=== PATIENT | female | born 1975 | race Caucasian/White ===

== ENCOUNTER 2016-10-30 13:31 | Emergency (ER) | payer MEDICAID, OTHER ==
[~2016-10-30] VITALS: Ht 157.5 cm; Wt 135.0 kg
[~2016-10-30 13:31] MED LIST: FLON0.053; LISI-587 PO; SYNT88TA PO
[2016-10-30 13:39] VITALS: BP 103/59; PULSE 104; RESP 18; TEMP 98.6; O2SAT 97
[2016-10-30] MEDS ORDERED: SYNT88TA PO (13:46)
[2016-10-30] MEDS ORDERED: LISI20TA3 PO (13:46)
--- NOTE | 2016-10-30 14:10 | PD ---
HPI Chief Complaint: Pain: Acute or Chronic Time Seen by Provider: 14:10 Travel History International Travel<30 days: No Contact w/Intl Traveler<30days: No Traveled to known affect area: No History of Present Illness HPI 41-year-old female with history of arthritis presents to the ED for evaluation of "months long" history of bilateral knee and ankle pain. Onset gradual, worsened by weightbearing. She denies acute injury to the area. She denies crepitus or giving way, numbness, tingling, weakness, limitations to range of motion of the extremities. She states that she takes gabapentin for the pain. States that she is ambulatory with a cane, works at [employer], standing all day. States that she has been unable to follow up with an orthopedist due to insurance changes. PFSH Past Medical History Arthritis: Yes (RA) Asthma: No Autoimmune Disease: Yes Anxiety: Yes Cancer: Yes (OVARIAN) Cardiovascular Problems: Yes Chest Pain: Yes (2 TREADMILL-1 ADENOSINE STRESS TEST) COPD: No Diminished Hearing: No Endocrine: Yes Genitourinary: Yes (MULTIPLE KIDNEY INFECTIONS) Hypertension: Yes Implanted Vascular Access Dvce: No Musculoskeletal: Yes (RHEUMATOID ARTHRITIS) Psychiatric: Yes Reproductive: Yes Respiratory: No Immunizations Current: Yes Thyroid Disease: Yes Tetanus Vaccination: > 5 Years Influenza Vaccination: Yes ?: Not : 3 Para: 2 : 1 Ectopic : Yes Ovarian Cysts: Yes Dilation and Curettage (D&C): Yes Tubal Ligation: Yes Past Surgical History Abdominal Surgery: Yes (CHOLECYSTECTOMY) Section: Yes (x2) Cholecystectomy: Yes (04) Gynecologic Surgery: Yes (CSECTIONS, D&C WITH NOVOSURE, 2 OVARIAN CYSTS REMOVED ) Hysterectomy: Yes Pacemaker: No Other Surgery: Yes (C-SECTIONS, GALLBLADDER, TUBAL LIGATION, D&C WITH NOVASURE , 2 CYSTS FROM OV) Social History Alcohol Use: No Tobacco Use: Yes (1 PACK PER WEEK) Substance Use: No Allergies-Medications (Allergen,Severity, Reaction): Coded Allergies: Penicillin (Verified Allergy, Severe, swelling, 10/30/16) Sulfa (Verified Allergy, Severe, UNKNOWN, 10/30/16) Lortab (Verified Allergy, Intermediate, Itching, 10/30/16) Tranexamic Acid (Verified Allergy, Intermediate, Itching, 10/30/16) Reported Meds & Prescriptions Reported Meds & Active Scripts Active Ibuprofen 800 Mg Tab 800 Mg PO Q8H Reported Synthroid (Levothyroxine Sodium) 88 Mcg Tab 88 Mcg PO DAILY Lisinopril-Hctz 20-25 Mg Tab 1 Tab PO DAILY Review of Systems Except as stated in HPI: all other systems reviewed are Neg Physical Exam Narrative GENERAL: Well-nourished, well-developed obese white female in no acute distress. SKIN: Warm and dry. HEAD: Normocephalic. EYES: No scleral icterus. No injection or drainage. NECK: Supple, trachea midline. No JVD or lymphadenopathy. CARDIOVASCULAR: Regular rate and rhythm without murmurs, gallops, or rubs. RESPIRATORY: Breath sounds equal bilaterally. No accessory muscle use. GASTROINTESTINAL: Abdomen soft, non-tender, nondistended. MUSCULOSKELETAL: No cyanosis. Bilateral knee is tender to palpation of the joint lines. Limitations to flexion of bilateral knees secondary to body habitus. No popliteal tenderness to palpation. Patient is able to extend to 0 bilaterally. Mild edema and bimalleolar tenderness of bilateral ankles. Patient is able to flex and extend the ankles bilaterally. Strength 5/5 in bilateral lower extremities. 2+ DP pulses bilaterally. Sensation intact to light touch distally. Cap refill less than 2 seconds. BACK: No obvious deformity. No CVA tenderness. Mild midline lumbar tenderness, worsened on the right side and right buttocks. Data Data Last Documented VS Vital Signs Date Time Temp Pulse Resp B/P Pulse Ox O2 Delivery O2 Flow Rate FiO2 10/30/16 13:39 98.6 104 18 103/59 97 Orders Ketorolac Inj (Toradol Inj) (10/30/16 14:45) [facility] Medical Decision Making Medical Screen Exam Complete: Yes Emergency Medical Condition: Yes Differential Diagnosis Osteoarthritis versus rheumatoid arthritis versus drug seeking behavior versus other Narrative Course 41-year-old female with history of arthritis presents to the ED for evaluation of "months long" history of bilateral knee and ankle pain. Onset gradual, worsened by weightbearing. She denies acute injury to the area. She denies crepitus or giving way, numbness, tingling, weakness, limitations to range of motion of the extremities. She states that she takes gabapentin for the pain. States that she is ambulatory with a cane, works at [employer], standing all day. States that she has been unable to follow up with an orthopedist due to insurance changes. Vitals reviewed. Physical exam reveals a morbidly obese white female in no acute distress. She is observed to ambulate slowly but normally with a cane. Lower extremity exam reveals bilateral tender to palpation of the joint lines of the knees. Limitations to flexion of bilateral knees secondary to body habitus. No popliteal tenderness to palpation. Patient is able to extend to 0 bilaterally. Mild edema and bimalleolar tenderness of bilateral ankles. Patient is able to flex and extend the ankles bilaterally. Strength 5/5 in bilateral lower extremities. 2+ DP pulses bilaterally. Sensation intact to light touch distally. Cap refill less than 2 seconds. Mild tenderness to palpation of the midline in the lumbar area, worse at right-sided paraspinal musculature and buttocks. This is osteoarthritis flare. Patient was administered IM Toradol. She was prescribed a short course of 800 mg ibuprofen, instructed to follow-up with the orthopedist. She was provided a note to excuse for 2 days off work. She indicated understanding of the instructions. She is stable and discharged home. Diagnosis Primary Impression: Osteoarthrosis involving more than one site Qualified Code: M15.0 - Primary osteoarthritis involving multiple joints Referrals: Juan Pablo Shankar MD Patient Instructions: General Instructions, Osteoarthritis (ED) Departure Forms: Tests/Procedures, Work Release Enter return to work date: Nov 03, 2016 Additional Instructions: Rest, ice, elevate the extremity. Apply ice no longer than 10-15 minutes per hour a few times a day. 800 mg ibuprofen 3 times a day to reduce pain and inflammation. BEGIN TAKING TOMORROW MORNING. Continue gabapentin as prescribed. Return to normal, gentle activity as tolerated. No running, jumping activities for the next few weeks. Follow up with orthopedist or your primary care provider. Return to the ED for any urgent or emergent medical condition. Med/Other Pt SpecificInfo: Prescription(s) given Scripts Ibuprofen 800 Mg [id number] Mg PO Q8H #21 TAB Ref 0 Prov:Harley Alva MD 10/30/16 Disposition: 01 DISCHARGE HOME Condition: Stable Linda Olson Oct 30, 2016 14:10
[2016-10-30] MEDS ORDERED: IBUP800T23 PO (14:38)
[2016-10-30] MEDS ORDERED: KETOROLAC TROMETHAMINE 60 MG/2 ML (IM) VIAL IM ONE (14:45)
[2017-01-13] MEDS ORDERED: LEVO150T7 PO (11:04)
[2017-01-13] MEDS ORDERED: IBUP800T23 PO (11:04)
[2017-01-13] MEDS ORDERED: LISI20TA3 PO (11:04)
[2017-01-13] MEDS ORDERED: FURO1TAB62 PO (11:11)
[2017-01-21] MEDS ORDERED: LEVO175T2 PO (16:11)
[2017-01-22] MEDS ORDERED: LEVO200T4 PO (16:20)
== END 2016-10-30 15:01 | disposition home or self-care (01) ==
LOC: PHEFT 13:31
DX: M15.0 Primary generalized (osteo)arthritis (principal); M06.9 Rheumatoid arthritis, unspecified; F41.9 Anxiety disorder, unspecified; F17.210 Nicotine dependence, cigarettes, uncomplicated
CPT/HCPCS: 96372; 99283; J1885

== ENCOUNTER 2016-11-09 09:20 | Emergency (ER) | payer OTHER ==
[~2016-11-09] VITALS: Ht 157.5 cm; Wt 132.8 kg
[~2016-11-09 09:20] MED LIST changes: -FLON0.053; +IBUP800T23 PO; -LISI-587 PO; +LISI20TA3 PO
[2016-11-09 09:31] VITALS: BP 131/92; PULSE 86; RESP 17; TEMP 98.3; O2SAT 97
[2016-11-09 10:45] VITALS: BP 147/78; PULSE 82; RESP 18; O2SAT 98
[2016-11-09 11:14] VITALS: O2SAT 98
[2016-11-09] MEDS ORDERED: SODIUM CHLORIDE 0.9% FLUSH 5 ML FLUSH IVF PRN (11:15)
--- NOTE | 2016-11-09 11:27 | RADHPO ---
EXAM DATE/TIME: 11/09/2016 11:19 [facility] COMPARISON: CHEST SINGLE AP, May 08, 2013, 19:09. INDICATIONS : Sycope this am, cough, short of breath MEDICAL HISTORY : Hypertension. SURGICAL HISTORY : None. ENCOUNTER: Initial ACUITY: 1 day PAIN SCORE: 0/10 LOCATION: Bilateral chest FINDINGS: A single view of the chest demonstrates the lungs to be symmetrically aerated without evidence of mas s, infiltrate or effusion. The cardiomediastinal contours are unremarkable. Osseous structures are intact. CONCLUSION: No acute disease. Felipe Craig MD on November 09, 2016 at 11:23 Board Certified Radiologist. This report was verified electronically.
--- NOTE | 2016-11-09 11:52 | PD ---
HPI Chief Complaint: Syncope/Near-Syncope Time Seen by Provider: 11:01 Travel History International Travel<30 days: No Contact w/Intl Traveler<30days: No Traveled to known affect area: No History of Present Illness HPI 41-year-old female with history of chronic back pains, currently waiting to see pain management, presents to the ER today because she had a syncopal episode this morning while she was getting up. She states that she thinks she was dizzy but does not remember what happened, found herself on the floor. She states that she is now having a headache. She denies any chest pains, shortness of breath, vomiting, black stools, diarrhea, or any other symptoms. She states she does not eat yet this morning but didn't eat last night. She states that she is having 9 out of 10 lower back pain with radiation down the legs on both sides which is the same back pain she has been having for months that has been seeing her primary care physician for it. She denies any fevers, incontinence, abdominal pain, or any other symptoms. Modifying Factors: None Associated Signs & Symptoms: Lower back pain, headache, syncope Risk Factors: Chronic back pain PFSH Past Medical History Arthritis: Yes (RA) Asthma: No Autoimmune Disease: Yes Anxiety: Yes Cancer: Yes (OVARIAN) Cardiovascular Problems: Yes Chest Pain: Yes (2 TREADMILL-1 ADENOSINE STRESS TEST) COPD: No Diminished Hearing: No Endocrine: Yes Genitourinary: Yes (MULTIPLE KIDNEY INFECTIONS) Hypertension: Yes Implanted Vascular Access Dvce: No Musculoskeletal: Yes (RHEUMATOID ARTHRITIS) Psychiatric: Yes Reproductive: Yes Respiratory: No Immunizations Current: Yes Thyroid Disease: Yes Influenza Vaccination: Yes ?: Not LMP: HYSTO : 3 Para: 2 : 1 Ectopic : Yes Ovarian Cysts: Yes Dilation and Curettage (D&C): Yes Tubal Ligation: Yes Past Surgical History Abdominal Surgery: Yes (CHOLECYSTECTOMY) Section: Yes (x2) Cholecystectomy: Yes (04) Gynecologic Surgery: Yes (CSECTIONS, D&C WITH NOVOSURE, 2 OVARIAN CYSTS REMOVED ) Hysterectomy: Yes Pacemaker: No Other Surgery: Yes (C-SECTIONS, GALLBLADDER, TUBAL LIGATION, D&C WITH NOVASURE , 2 CYSTS FROM OV) Social History Alcohol Use: No Tobacco Use: Yes (1 PACK PER WEEK) Substance Use: No Allergies-Medications (Allergen,Severity, Reaction): Coded Allergies: Penicillin (Verified Allergy, Severe, swelling, 11/09/16) Sulfa (Verified Allergy, Severe, UNKNOWN, 11/09/16) Lortab (Verified Allergy, Intermediate, Itching, 11/09/16) Tranexamic Acid (Verified Allergy, Intermediate, Itching, 11/09/16) Reported Meds & Prescriptions Reported Meds & Active Scripts Active Ibuprofen 800 Mg Tab 800 Mg PO Q8H Reported Synthroid (Levothyroxine Sodium) 88 Mcg Tab 88 Mcg PO DAILY Lisinopril-Hctz 20-25 Mg Tab 1 Tab PO DAILY Review of Systems Except as stated in HPI: all other systems reviewed are Neg Physical Exam Narrative GENERAL: Well-developed middle age white female patient in mild distress secondary to back pain, awake, alert, oriented 3. SKIN: Warm and dry. HEAD: Atraumatic. Normocephalic. EYES: Pupils equal and round. No scleral icterus. No injection or drainage. ENT: No nasal bleeding or discharge. Mucous membranes pink and moist. NECK: Trachea midline. No JVD. CARDIOVASCULAR: Regular rate and rhythm. No murmur appreciated. RESPIRATORY: No accessory muscle use. Clear to auscultation. Breath sounds equal bilaterally. GASTROINTESTINAL: Abdomen soft, non-tender, nondistended. Hepatic and splenic margins not palpable. MUSCULOSKELETAL: No obvious deformities. No clubbing. No cyanosis. No edema. NEUROLOGICAL: Awake and alert. No obvious cranial nerve deficits. Motor grossly within normal limits. Normal speech. PSYCHIATRIC: Appropriate mood and affect; insight and judgment normal. BACK: No CVA tenderness. No rash. No point tenderness on palpation of the spine. There is mild tenderness on palpation of the lower lumbar spine area. No saddle anesthesia. Data Data Last Documented VS Vital Signs Date Time Temp Pulse Resp B/P Pulse Ox O2 Delivery O2 Flow Rate FiO2 11/09/16 13:20 71 18 148/74 99 11/09/16 11:14 Room Air 11/09/16 09:31 98.3 Orders Electrocardiogram (11/09/16 11:01) Ed Urine Pregnancytest Poc (11/09/16 11:01) Complete Blood Count With Diff (11/09/16 11:01) Comprehensive Metabolic Panel (11/09/16 11:01) Magnesium (Mg) (11/09/16 11:01) Act Partial Throm Time (Ptt) (11/09/16 11:01) Prothrombin Time / Inr (Pt) (11/09/16 11:01) Urinalysis - C+S If Indicated (11/09/16 11:01) Chest, Single Ap (11/09/16 11:01) Ct Brain W/O Iv Contrast(Rout) (11/09/16 11:01) Ecg Monitoring (11/09/16 11:01) Iv Access Insert/Monitor (11/09/16 11:01) Oximetry (11/09/16 11:01) Sodium Chloride 0.9% Flush (Ns Flush) (11/09/16 11:15) Cta Thor Abd Aorta W Iv C W3d (11/09/16 ) Morphine Inj (Morphine Inj) (11/09/16 12:30) Ondansetron Inj (Zofran Inj) (11/09/16 12:30) Urine Culture (11/09/16 13:15) Labs Laboratory Tests Test 11/09/16 11/09/16 11:44 13:15 White Blood Count 9.1 TH/MM3 Red Blood Count 4.42 MIL/MM3 Hemoglobin 12.7 GM/DL Hematocrit 38.0 % Mean Corpuscular Volume 86.0 FL Mean Corpuscular Hemoglobin 28.8 PG Mean Corpuscular Hemoglobin 33.5 % Concent Red Cell Distribution Width 15.3 % Platelet Count 269 TH/MM3 Mean Platelet Volume 8.6 FL Neutrophils (%) (Auto) 65.6 % Lymphocytes (%) (Auto) 24.8 % Monocytes (%) (Auto) 7.1 % Eosinophils (%) (Auto) 2.1 % Basophils (%) (Auto) 0.4 % Neutrophils # (Auto) 6.0 TH/MM3 Lymphocytes # (Auto) 2.3 TH/MM3 Monocytes # (Auto) 0.6 TH/MM3 Eosinophils # (Auto) 0.2 TH/MM3 Basophils # (Auto) 0.0 TH/MM3 CBC Comment DIFF FINAL Differential Comment Prothrombin Time 10.6 SEC Prothromb Time International 1.0 RATIO Ratio Activated Partial 29.1 SEC Thromboplast Time Sodium Level 140 MEQ/L Potassium Level 3.7 MEQ/L Chloride Level 104 MEQ/L Carbon Dioxide Level 30.5 MEQ/L Anion Gap 6 MEQ/L Blood Urea Nitrogen 16 MG/DL Creatinine 0.87 MG/DL Estimat Glomerular Filtration 71 ML/MIN Rate Random Glucose 91 MG/DL Calcium Level 8.7 MG/DL Magnesium Level 2.2 MG/DL Total Bilirubin 0.2 MG/DL Aspartate Amino Transf 20 U/L (AST/SGOT) Alanine Aminotransferase 34 U/L (ALT/SGPT) Alkaline Phosphatase 93 U/L Total Protein 7.7 GM/DL Albumin 3.3 GM/DL Urine Collection Type CLEAN CATCH Urine Color YELLOW Urine Turbidity CLEAR Urine pH 6.0 Urine Specific [place] 1.034 Urine Protein NEG mg/dL Urine Glucose (UA) NEG mg/dL Urine Ketones NEG mg/dL Urine Occult Blood NEG Urine Nitrite POS Urine Bilirubin NEG Urine Leukocyte Esterase NEG Urine WBC 0-2 /hpf Urine Squamous Epithelial 0-5 /hpf Cells Urine Bacteria MANY /hpf Microscopic Urinalysis Comment CULTURE INDICATED MDM Medical Decision Making Medical Screen Exam Complete: Yes Emergency Medical Condition: Yes Medical Record Reviewed: Yes Interpretation(s) EKG shows NSR, no ST elevation or depression, and no arrhythmias. No significant T-wave inversions. No prolongation of QTC or delta waves. Laboratory Tests Test 11/09/16 11/09/16 11:44 13:15 Estimat Glomerular Filtration 71 ML/MIN (>89) Rate Albumin 3.3 GM/DL (3.4-5.0) Urine Nitrite POS (NEG) Urine Bacteria MANY /hpf (NONE) Differential Diagnosis Back pain, headache, syncopevasovagal syncope versus orthostasis versus metabolic issues versus dehydration versus dysrhythmias versus acute intracranial processes versus dissection versus AAA Narrative Course Lab work did not reveal any signs of acute pulmonary processes. Chest x-ray is unremarkable for any signs of acute issues. CTA did not show any signs of acute pulmonary processes, aortic processes, or other acute issues. Lab work did not show significant metabolic issues or significant dehydration. Her EKG did not show dysrhythmias. Vital signs are stable in the ER. On reevaluation at 1:30 PM, patient states that she is feeling better after being given morphine and Zofran for pain. She ambulated to the bathroom with her cane without issues. At this point, patient also states me that she had some pain in the back of her right leg and she is worried about blood clots. At this point, I have told her that in order to rule out blood clots, we need to do a ultrasound of the right leg for further evaluation. However, the patient is declining at this time stating that she does not want to wait for an ultrasound. I have stated to her that with no ultrasound done, a blood clot in her right leg cannot be ruled out and if there is one, this could've been precipitated a pulmonary embolism which can be deadly. Patient states understanding and states that she would rather follow-up with her primary care physician on Thursday for further evaluation. The risks and possibility of undiagnosed DVT has been discussed with the patient. At this point, she should return for any worsening in pain, shortness of breath, further syncopal episodes or new issues as needed. Follow-up with primary care physician on Thursday. Patient states understanding. Diagnosis Primary Impression: Syncope Additional Impression: Chronic back pain greater than 3 months duration Disposition: 01 DISCHARGE HOME Condition: Stable Katt De La Paz MD Nov 09, 2016 11:52
[2016-11-09 11:53] LABS: BASOPHIL % 0.4 % (0.0-2.0); EOSINOPHIL # 0.2 TH/MM3 (0-0.4); EOSINOPHIL % 2.1 % (0.0-4.0); HEMO FLAGS DIFF FINAL; LYMPH % 24.8 % (9.0-44.0); LYMPHOCYTE # 2.3 TH/MM3 (1.0-4.8); MEAN CORPUSCULAR HEMOGLOBIN 28.8 PG (27.0-34.0); MEAN CORPUSCULAR HGB CONC 33.5 % (32.0-36.0); MONO % 7.1 % (0.0-8.0); NEUT % 65.6 % (16.0-70.0); PLATELET COUNT 269 TH/MM3 (150-450); RED BLOOD COUNT 4.42 MIL/MM3 (4.00-5.30); RED CELL DISTRIBUTION WIDTH 15.3 % (11.6-17.2); WHITE BLOOD COUNT 9.1 TH/MM3 (4.0-11.0)
[2016-11-09 12:00] LABS: CHLORIDE 104 MEQ/L (98-107); POTASSIUM 3.7 MEQ/L (3.5-5.1); SODIUM (NA) 140 MEQ/L (136-145)
[2016-11-09 12:03] LABS: ANION GAP 6 MEQ/L (5-15); BICARBONATE 30.5 MEQ/L (21.0-32.0); BLOOD UREA NITROGEN 16 MG/DL (7-18); MAGNESIUM 2.2 MG/DL (1.5-2.5)
[2016-11-09 12:04] LABS: APTT (PATIENT) 29.1 SEC (24.3-30.1); PROTHROMBIN TIME - PATIENT 10.6 SEC (9.8-11.6)
[2016-11-09 12:06] LABS: ALT (GPT) 34 U/L (10-53); AST (GOT) 20 U/L (15-37); GLOMERULAR FILTRATION RATE 71 ML/MIN (>89)
[2016-11-09 12:08] LABS: TOTAL BILIRUBIN ADULT 0.2 MG/DL (0.2-1.0)
[2016-11-09 12:09] LABS: ALKALINE PHOSPHATASE 93 U/L (45-117)
[2016-11-09] MEDS ORDERED: ONDANSETRON HCL 4 MG/2 ML VIAL IV PUSH ONE (12:30)
[2016-11-09] MEDS ORDERED: MORPHINE SULFATE 4 MG/ML INJ IV PUSH ONE (12:30)
--- NOTE | 2016-11-09 12:54 | RADHPO ---
EXAM DATE/TIME: 11/09/2016 12:23 [facility] COMPARISON: CT BRAIN W/O CONTRAST, April 09, 2013, 0:58. INDICATIONS : Cephalgia, syncope. RADIATION DOSE: 58.45 CTDIvol (mGy) MEDICAL HISTORY : Hypertension. SURGICAL HISTORY : Hysterectomy. Cholecystectomy. ENCOUNTER: Initial ACUITY: 1 day PAIN SCALE: 5/10 LOCATION: cranial TECHNIQUE: Multiple contiguous axial images were obtained of the head. Using automated exposure control and adj ustment of the mA and/or kV according to patient size, radiation dose was kept as low as reasonably a chievable to obtain optimal diagnostic quality images. FINDINGS: CEREBRUM: The ventricles are normal for age. No evidence of midline shift, mass lesion, hemorrhage or acute in farction. No extra-axial fluid collections are seen. POSTERIOR FOSSA: The cerebellum and brainstem are intact. The 4th ventricle is midline. The cerebellopontine angle i s unremarkable. EXTRACRANIAL: The visualized portion of the orbits is intact. SKULL: The calvaria is intact. No evidence of skull fracture. CONCLUSION: Normal examination. Felipe Craig MD on November 09, 2016 at 12:51 Board Certified Radiologist. This report was verified electronically.
--- NOTE | 2016-11-09 13:14 | RADHPO ---
EXAM DATE/TIME: 11/09/2016 12:27 [facility] COMPARISON: No previous studies available for comparison. INDICATIONS : Evaluate for aneursym IV CONTRAST: 99 cc Omnipaque 350 (iohexol) IV RADIATION DOSE: 22.94 CTDIvol (mGy) MEDICAL HISTORY : Hypertension. SURGICAL HISTORY : Cholecystectomy. Hysterectomy. ENCOUNTER: Initial ACUITY: 1 day PAIN SCALE: 2/10 LOCATION: chest TECHNIQUE: Volumetric scanning was performed using a multi-row detector CT scanner. The data was post processed with a variety of visualization algorithms including full volume maximum intensity projection, multi -planar sliding thin slab reformation, curved planar reformation, and surface rendering techniques. Using automated exposure control and adjustment of the mA and/or kV according to patient size, radiat ion dose was kept as low as reasonably achievable to obtain optimal diagnostic quality images. FINDINGS: Examination of the lung castaneda demonstrates no evidence of pulmonary nodule. No pleural fluid is iden tified. Examination of the mediastinum demonstrates no abnormally enlarged lymph nodes by CT criteri a. No axillary or hilar abnormalities are identified. Coronary artery calcifications are not present. There is decreased density of the liver with respect to the spleen compatible with fatty infiltration . The spleen is unremarkable. The gallbladder is absent. The pancreas demonstrates normal contour wit hout evidence of mass or ductal dilatation. The adrenal glands and kidneys appear normal bilaterally. No hydronephrosis or mass lesions are identified. Examination of the pelvis demonstrates no evidence of free fluid or pelvic mass. No abnormally enlarged inguinal or retroperitoneal lymph nodes are pre sent. The bladder is unremarkable. Examination of the aortic arch demonstrates no evidence of aneurysm or dissection. The descending th oracic aorta is unremarkable and the aortic root is normal in size. The aorta is normal in caliber. T here is no evidence of aneurysm or dissection. The renal artery origins are patent bilaterally. The c eliac axis and superior mesenteric artery origins are also patent. CONCLUSION: 1. No evidence of acute thoracic abnormality. No masses are identified. No evidence of aneurysm Jose Evans MD on November 09, 2016 at 13:08 Board Certified Radiologist. This report was verified electronically.
[2016-11-09 13:20] VITALS: BP 148/74; PULSE 71; RESP 18; O2SAT 99
[2016-11-09 13:20] LABS: BLOOD, URINE NEG (NEG); GLUCOSE,URINE NEG (NEG); KETONE, URINE NEG (NEG)
[2016-11-09 13:23] LABS: NITRITE,URINE POS (NEG)
[2016-11-09 13:24] LABS: METHOD OF COLLECTION CLEAN CATCH; URINE COLOR YELLOW (YELLW/STRAW)
[2016-11-09 13:25] LABS: BACTERIA, URINE MANY /hpf; COMMENT (UR) CULTURE INDICATED; CULTURE IF INDICATED CULTURE INDICATED; SQUAMOUS EPITHELIAL CELL URINE 0-5 /hpf (0-5); WBC, URINE 0-2 /hpf (0-5)
[2016-11-09] MEDS ORDERED: IOHEXOL 350 MG/ML 10 ML VIAL (for RAD DIAG) IV ONE (15:06)
--- NOTE | 2016-11-10 15:02 | EKG ---
Date Performed: 11/09/2016 Time Performed: 11:06:42 PTAGE: 41 years EKG: Sinus rhythm Normal ECG Compared to prior tracing no significant change PREVIOUS TRACING : 05/08/2013 18.39 DOCTOR: Nohelia Hoffman Interpretating Date/Time 11/10/2016 14:54:25
[2017-01-13] MEDS ORDERED: LISI20TA3 PO (11:04)
[2017-01-13] MEDS ORDERED: IBUP800T23 PO (11:04)
[2017-01-13] MEDS ORDERED: LEVO150T7 PO (11:04)
[2017-01-13] MEDS ORDERED: FURO1TAB62 PO (11:11)
[2017-01-21] MEDS ORDERED: LEVO175T2 PO (16:11)
[2017-01-22] MEDS ORDERED: LEVO200T4 PO (16:20)
== END 2016-11-09 13:55 | disposition home or self-care (01) ==
LOC: PHED 09:20
DX: R55 Syncope and collapse (principal); M54.9 Dorsalgia, unspecified; Z72.0 Tobacco use; M06.9 Rheumatoid arthritis, unspecified; F41.9 Anxiety disorder, unspecified
CPT/HCPCS: 70450; 71010; 71275; 74174; 80053; 81001; 83735; 85025; 85610; 85730; 87077; 87086; 87186; 93005; 96374; 96375; 99284; J2270; J2405; Q9967

== ENCOUNTER → 2017-01-21 | Outpatient (CLI) | payer OTHER ==
[~2017-01-21] MED LIST changes: +FURO1TAB62 PO; +FURO20TA PO; +LEVO150T7 PO; +LEVO175T2 PO; +LEVO200T4 PO; +PRED20 PO; -SYNT88TA PO
[2017-01-21 14:03] LABS: POTASSIUM 3.8 MEQ/L (3.5-5.1)
[2017-01-21 14:11] LABS: HDL CHOLESTEROL 38.6 MG/DL (40.0-60.0)
== END ==
LOC: CLAB 13:21
PROVIDERS: ATTEND Nurse Practitioner Family
DX: E66.9 Obesity, unspecified (principal); E03.9 Hypothyroidism, unspecified; M25.471 Effusion, right ankle
CPT/HCPCS: 36415; 80061; 84132; 84443

== ENCOUNTER 2017-01-25 13:48 | Emergency (ER) | payer OTHER ==
[~2017-01-25] VITALS: Ht 157.5 cm; Wt 133.0 kg
[~2017-01-25 13:48] MED LIST changes: -FURO20TA PO; -LEVO150T7 PO; -LEVO175T2 PO; -PRED20 PO
[2017-01-25 13:50] VITALS: BP 145/98; PULSE 99; RESP 16; TEMP 98.6; O2SAT 96
[2017-01-25] MEDS ORDERED: KETOROLAC TROMETHAMINE 60 MG/2 ML (IM) VIAL IM ONE (14:15)
--- NOTE | 2017-01-25 14:19 | PD ---
HPI Chief Complaint: Pain: Acute or Chronic Time Seen by Provider: 14:09 Travel History International Travel<30 days: No Contact w/Intl Traveler<30days: No Traveled to known affect area: No History of Present Illness HPI 41-year-old female presents to the emergency room for evaluation of bilateral knee pain for the past 2 days. Patient denies trauma or injury. States she woke up with pain. Patient states the pain is affecting her ability to walk. She cannot localize pain. Pain is equal and bilateral knees. She has history of rheumatoid arthritis in her ankles. Patient has been taking 800 mg ibuprofen without relief in symptoms. She denies paresthesias. Denies history of diabetes. PFSH Past Medical History Arthritis: Yes (RA) Asthma: No Autoimmune Disease: Yes Anxiety: Yes Cancer: Yes (OVARIAN) Cardiovascular Problems: Yes Chest Pain: Yes (2 TREADMILL-1 ADENOSINE STRESS TEST) COPD: No Diminished Hearing: No Endocrine: Yes Genitourinary: Yes (MULTIPLE KIDNEY INFECTIONS) Hypertension: Yes Implanted Vascular Access Dvce: No Musculoskeletal: Yes (RHEUMATOID ARTHRITIS) Psychiatric: Yes Reproductive: Yes Respiratory: No Immunizations Current: Yes Thyroid Disease: Yes : 3 Para: 2 : 1 Ectopic : Yes Ovarian Cysts: Yes Dilation and Curettage (D&C): Yes Tubal Ligation: Yes Past Surgical History Abdominal Surgery: Yes (CHOLECYSTECTOMY) Section: Yes (x2) Cholecystectomy: Yes (04) Gynecologic Surgery: Yes (CSECTIONS, D&C WITH NOVOSURE, 2 OVARIAN CYSTS REMOVED ) Hysterectomy: Yes Pacemaker: No Other Surgery: Yes (C-SECTIONS, GALLBLADDER, TUBAL LIGATION, D&C WITH NOVASURE , 2 CYSTS FROM OV) Social History Alcohol Use: No Tobacco Use: Yes (1 PACK PER WEEK) Substance Use: No Allergies-Medications (Allergen,Severity, Reaction): Coded Allergies: Penicillin (Verified Allergy, Severe, swelling, 01/25/17) Sulfa (Verified Allergy, Severe, UNKNOWN, 01/25/17) Lortab (Verified Allergy, Intermediate, Itching, 01/25/17) Tranexamic Acid (Verified Allergy, Intermediate, Itching, 01/25/17) Reported Meds & Prescriptions Reported Meds & Active Scripts Active Levothyroxine (Levothyroxine Sodium) 200 Mcg Tab 200 Mcg PO DAILY Lasix (Furosemide) 20 Mg Tab 20 Mg PO DAILY Ibuprofen 800 Mg Tab 800 Mg PO Q8H Lisinopril-Hctz 20-25 Mg Tab 1 Tab PO DAILY Review of Systems Except as stated in HPI: all other systems reviewed are Neg Physical Exam Narrative GENERAL: Well-nourished, morbidly obese female in no acute distress. Afebrile. Ambulatory. SKIN: Focused skin assessment warm/dry. No erythema or ecchymosis. HEAD: Normocephalic. EYES: No scleral icterus. No injection or drainage. NECK: Supple, trachea midline. No JVD or lymphadenopathy. CARDIOVASCULAR: Regular rate and rhythm without murmurs, gallops, or rubs. RESPIRATORY: Breath sounds equal bilaterally. No accessory muscle use. EXTREMITY: Mild tenderness to palpation of the proximal knees bilaterally. Full range of motion in all joints. No obvious edema or effusion. 2+ dorsalis pedis pulses are equal bilaterally. Data Data Last Documented VS Vital Signs Date Time Temp Pulse Resp B/P Pulse Ox O2 Delivery O2 Flow Rate FiO2 01/25/17 13:50 98.6 99 16 145/98 96 MDM Medical Decision Making Medical Screen Exam Complete: Yes Emergency Medical Condition: Yes Medical Record Reviewed: Yes Differential Diagnosis Osteoarthritis versus rheumatoid arthritis versus morbid obesity Narrative Course 41-year-old female with a history of rheumatoid arthritis presents to the emergency room for evaluation of bilateral knee pain for the past 2 days. Patient denies trauma or injury. Physical exam is unremarkable. Patient is ambulatory. Right lower extremities are neurovascularly intact with equal 2+ dorsalis pedis pulses. She has full range of motion bilaterally. No localized tenderness to palpation. No indication for imaging. Likely arthritis. Patient given Toradol the emergency room for her to be discharged with prescription for prednisone. It was recommended she lose weight to reduce pain. Told to follow up with primary care physician or return for worsening symptoms. Diagnosis Primary Impression: Osteoarthrosis involving more than one site Qualified Code: M15.0 - Primary osteoarthritis involving multiple joints Referrals: Primary Care Physician Patient Instructions: General Instructions, Osteoarthritis (ED) Additional Instructions: Rest and drink plenty of fluids. Take prednisone as directed, until gone. Take ibuprofen with food as directed, as needed for pain. Apply ice to the affected area for 20 minutes at a time, as needed for pain and swelling. Follow-up with a primary care physician. Return to the emergency room for worsening symptoms. Disposition: 01 DISCHARGE HOME Condition: Stable Era,Maia PA January 25, 2017 14:19
[2017-01-25] MEDS ORDERED: PRED20 PO (14:21)
[2017-01-25] MEDS ORDERED: FURO20TA PO (14:30)
== END 2017-01-25 14:41 | disposition home or self-care (01) ==
LOC: PHEFT 13:48
DX: M15.0 Primary generalized (osteo)arthritis (principal); M06.9 Rheumatoid arthritis, unspecified; F17.210 Nicotine dependence, cigarettes, uncomplicated
CPT/HCPCS: 96372; 99284; J1885

== ENCOUNTER 2017-03-12 12:15 | Emergency (ER) | payer OTHER ==
[~2017-03-12] VITALS: Ht 157.5 cm; Wt 139.0 kg
[~2017-03-12 12:15] MED LIST changes: -FURO1TAB62 PO; +FURO20TA PO
[2017-03-12 12:30] VITALS: BP 141/92; PULSE 93; RESP 14; TEMP 97.4; O2SAT 95
[2017-03-12 12:50] VITALS: BP 141/92; PULSE 93; RESP 16; TEMP 97.4; O2SAT 95
[2017-03-12] MEDS ORDERED: PRED20 PO (12:59)
[2017-03-12] MEDS ORDERED: TRAM50TA PO (12:59)
[2017-03-12] MEDS ORDERED: IBUP800T23 PO (12:59)
[2017-03-12] MEDS ORDERED: KETOROLAC TROMETHAMINE 60 MG/2 ML (IM) VIAL IM ONE (13:00)
[2017-03-12] MEDS ORDERED: METHOCARBAMOL 500 MG TAB PO ONE (13:00)
[2017-03-12] MEDS ORDERED: DEXAMETHASONE SOD PHOS 20 MG/5 ML VIAL IM ONE (13:00)
--- NOTE | 2017-03-12 13:05 | PD ---
HPI Chief Complaint: Musculoskeletal Complaint Time Seen by Provider: 12:59 Travel History International Travel<30 days: No Contact w/Intl Traveler<30days: No Traveled to known affect area: No History of Present Illness HPI 41-year-old female that presents to the ED for evaluation of pain to the knees and back for about 2 days. Patient has a chronic history of ulcers rhinitis and rheumatoid arthritis and she states that she usually has pain. Per patient she is concerned because she did fell 2 days ago and this is when the pain started to get more severe. Per patient she tripped and landed on both her knees. Per patient ever since she's also been developing lower back pain. Per patient she does have chronic pain but this feels a bit different and this is what concerned her. Per patient she only takes ibuprofen and gabapentin for the discomfort. She states that she doesn't have follow-up because of insurance issues and seems to follow with the patient assistance program. She states that she been taking ibuprofen with minimal relief and she came here today because the pain is not improving and she is having difficulty ambulating even with her cane. Per patient her pain is severe and 10 out of 10. Mainly in both knees as well as the lower back. No other pain or injury reported. No head injury. No blood thinner use. Denies . PFSH Past Medical History Arthritis: Yes (RA) Asthma: No Autoimmune Disease: Yes Anxiety: Yes Cancer: Yes (OVARIAN) Cardiovascular Problems: Yes Chest Pain: Yes (2 TREADMILL-1 ADENOSINE STRESS TEST) COPD: No Diminished Hearing: No Endocrine: Yes Genitourinary: Yes (MULTIPLE KIDNEY INFECTIONS) Hypertension: Yes Implanted Vascular Access Dvce: No Musculoskeletal: Yes (RHEUMATOID ARTHRITIS) Psychiatric: Yes Reproductive: Yes Respiratory: No Immunizations Current: Yes Thyroid Disease: Yes ?: Not : 3 Para: 2 : 1 Ectopic : Yes Ovarian Cysts: Yes Dilation and Curettage (D&C): Yes Tubal Ligation: Yes Past Surgical History Abdominal Surgery: Yes (CHOLECYSTECTOMY) Section: Yes (x2) Cholecystectomy: Yes (04) Gynecologic Surgery: Yes (CSECTIONS, D&C WITH NOVOSURE, 2 OVARIAN CYSTS REMOVED ) Hysterectomy: Yes Pacemaker: No Other Surgery: Yes (C-SECTIONS, GALLBLADDER, TUBAL LIGATION, D&C WITH NOVASURE , 2 CYSTS FROM OV) Social History Alcohol Use: No Tobacco Use: Yes (1 PACK PER WEEK) Substance Use: No Allergies-Medications (Allergen,Severity, Reaction): Coded Allergies: Penicillin (Verified Allergy, Severe, swelling, 03/12/17) Sulfa (Verified Allergy, Severe, UNKNOWN, 03/12/17) Lortab (Verified Allergy, Intermediate, Itching, 03/12/17) Tranexamic Acid (Verified Allergy, Intermediate, Itching, 03/12/17) Reported Meds & Prescriptions Reported Meds & Active Scripts Active Tramadol (Tramadol HCl) 50 Mg Tab 50 Mg PO Q6H PRN Prednisone 20 Mg Tab 20 Mg PO BID Ibuprofen 800 Mg Tab 800 Mg PO Q8H Levothyroxine (Levothyroxine Sodium) 200 Mcg Tab 200 Mcg PO DAILY Lisinopril-Hctz 20-25 Mg Tab 1 Tab PO DAILY Reported Furosemide 20 Mg Tab 20 Mg PO DAILY Review of Systems Except as stated in HPI: all other systems reviewed are Neg Physical Exam Narrative GENERAL: SKIN: Warm and dry. HEAD: Atraumatic. Normocephalic. EYES: Pupils equal and round. No scleral icterus. No injection or drainage. ENT: No nasal bleeding or discharge. Mucous membranes pink and moist. Tongue is midline. No uvula deviation. NECK: Trachea midline. No JVD. CARDIOVASCULAR: Regular rate and rhythm. No murmurs, S3, S4. RESPIRATORY: No accessory muscle use. Clear to auscultation. Breath sounds equal bilaterally. GASTROINTESTINAL: Abdomen soft, non-tender, nondistended. Hepatic and splenic margins not palpable. MUSCULOSKELETAL: Extremities without clubbing, cyanosis, or edema. No obvious deformities. Patient has reproducible pain with bending of the lower back. No obvious lumbar spine tenderness to palpation. Patient does appear to have some muscle tenderness on the lower back. Hard to assess knee secondary to body habitus but patient does not appear to have any severe discomfort with flexion or extension. Patient able to do it. Patient does have pain with weightbearing. No obvious swelling but again hard to assess because of patient' s body habitus. No erythema. No sign of infection. 2+ pulses in the lower extremities. Sensation intact bilaterally. Straight leg test negative bilaterally. NEUROLOGICAL: Awake and alert. No obvious cranial nerve deficits. Motor grossly within normal limits. Five out of 5 muscle strength in the arms and legs. Normal speech. PSYCHIATRIC: Appropriate mood and affect; insight and judgment normal. Data Data Last Documented VS Vital Signs Date Time Temp Pulse Resp B/P Pulse Ox O2 Delivery O2 Flow Rate FiO2 03/12/17 12:50 97.4 93 16 141/92 95 03/12/17 12:30 Room Air Orders Knee, Ltd (1 Or 2vws) (03/12/17 12:56) Spine, Lumbar - Ltd (Ap & Lat) (03/12/17 12:56) Knee, Ltd (1 Or 2vws) (03/12/17 ) Ketorolac Inj (Toradol Inj) (03/12/17 13:00) Dexamethasone Inj (Decadron Inj) (03/12/17 13:00) Methocarbamol (Robaxin) (03/12/17 13:00) MDM Medical Decision Making Medical Screen Exam Complete: Yes Emergency Medical Condition: Yes Medical Record Reviewed: Yes Interpretation(s) X-ray the right knee as well as the left knee show no sign of acute injury, biparte patella on the right knee, and possibly tiny joint effusions bilaterally. Lumbar spine xray show no sign of acute bony injury. Differential Diagnosis Acute on chronic pain versus fracture versus new pain versus posterior arthritis versus contusion Narrative Course 41-year-old female that presents to the ED for evaluation of bilateral knee pain and back pain. Patient was properly examined and was found to have signs and symptoms very consistent what appears to be muscle skeletal back pain and knee pain. Patient does already have a chronic history which is documented here in our ED as well as in the community clinic of knee pain and back pain which appears to be related to osteoarthritis as well as rheumatoid arthritis. She had a recent fall. She is muscle intact. No sign of acute bony injury we will do x-rays because of her body habitus and recent fall. X-rays were negative for acute disease. Patient was reassured. Patient was given a dose of Toradol, dexamethasone and Robaxin. Patient will be sent home with prescriptions for ibuprofen which she states that she is out of as well as tramadol and prednisone. To continue following with her primary care doctor for further evaluation and treatment of her rheumatoid arthritis and review pain. See ED worsening symptoms. Ice or warm compresses. Note for work given. Diagnosis Primary Impression: Low back strain Qualified Code: S39.012A - Low back strain, initial encounter Additional Impressions: Contusion of knee Qualified Code: S80.00XA - Contusion of knee, unspecified laterality, initial encounter Osteoarthrosis involving more than one site Qualified Code: M15.9 - Osteoarthritis of multiple joints, unspecified osteoarthritis type Patient Instructions: General Instructions Departure Forms: Tests/Procedures, Work Release Enter return to work date: Mar 16, 2017 Additional Instructions: Take medications as prescribed. Follow-up with PCP. See ED for any worsening symptoms. Do not drink or drive while taking pain medication. Apply ice or heat as needed for pain Med/Other Pt SpecificInfo: Prescription(s) given Scripts Tramadol 50 Mg Tab50 Mg PO Q6H PRN (PAIN) #12 TAB Ref 0 Prov:Ernesto Callahan MD 03/12/17 Prednisone 20 Mg Tab20 Mg PO BID #10 TAB Prov:Ernesto Callahan MD 03/12/17 Ibuprofen 800 Mg Pax320 Mg PO Q8H #30 TAB Ref 3 Prov:Ernesto Callahan MD 03/12/17 Disposition: 01 DISCHARGE HOME Condition: Stable Eric Rodrigues Mar 12, 2017 13:05
--- NOTE | 2017-03-12 13:59 | RADRPT ---
EXAM DATE/TIME: 03/12/2017 13:22 [facility] COMPARISON: No previous studies available for comparison. INDICATIONS : Fall, low back pain. MEDICAL HISTORY : Arthritis. SURGICAL HISTORY : None. ENCOUNTER: Initial ACUITY: 2 days PAIN SCORE: 10/10 LOCATION: low back FINDINGS: No appreciable compression deformities, spondylolisthesis, or spondylolysis is seen. Slight degenera tive changes are seen within the disc space and facets. Chronic atherosclerotic calcifications are se en without any definite aneurysmal dilatations for technique. CONCLUSION: Chronic changes. Funmilayo Funes MD on March 12, 2017 at 13:57 Board Certified Radiologist. This report was verified electronically.
--- NOTE | 2017-03-12 14:00 | RADRPT ---
EXAM DATE/TIME: 03/12/2017 13:24 [facility] COMPARISON: KNEE LEFT LTD (1 OR 2VWS), March 12, 2017, 13:24. INDICATIONS : Fall, right knee pain. MEDICAL HISTORY : Arthritis. SURGICAL HISTORY : None. ENCOUNTER: Initial ACUITY: 2 days PAIN SCORE: 10/10 LOCATION: Right knee FINDINGS: No definite fractures, or dislocations are identified. No definite lytic or sclerotic lesion is seen . The joint spaces are well maintained. 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 A tiny joint effusion may b e present. CONCLUSION: Bipartite patella and possible tiny effusion. Funmilayo Funes MD on March 12, 2017 at 13:58 Board Certified Radiologist. This report was verified electronically.
--- NOTE | 2017-03-12 14:01 | RADRPT ---
EXAM DATE/TIME: 03/12/2017 13:24 [facility] COMPARISON: No previous studies available for comparison. INDICATIONS : Fall, left knee pain. MEDICAL HISTORY : Arthritis. SURGICAL HISTORY : None. ENCOUNTER: Initial ACUITY: 2 days PAIN SCORE: 10/10 LOCATION: Left knee FINDINGS: No definite fractures, or dislocations are identified. No definite lytic or sclerotic lesion is seen . The joint spaces are well maintained. Tiny joint effusion is seen. CONCLUSION: Unremarkable study except for tiny joint effusion. Funmilayo Funes MD on March 12, 2017 at 13:59 Board Certified Radiologist. This report was verified electronically.
[2017-03-12 14:13] VITALS: BP 131/81
== END 2017-03-12 14:21 | disposition home or self-care (01) ==
LOC: PHED 12:15
DX: S39.012A Strain of muscle, fascia and tendon of lower back, initial encounter (principal); S80.01XA Contusion of right knee, initial encounter; S80.02XA Contusion of left knee, initial encounter; M15.9 Polyosteoarthritis, unspecified; M06.9 Rheumatoid arthritis, unspecified; W01.0XXA Fall on same level from slipping, tripping and stumbling without subsequent striking against object, initial encounter
CPT/HCPCS: 72100; 73560; 96372; 99284; J1100; J1885

== ENCOUNTER 2017-04-23 10:14 | Emergency (ER) | payer OTHER ==
[~2017-04-23] VITALS: Ht 157.5 cm; Wt 138.0 kg
[~2017-04-23 10:14] MED LIST changes: +PRED20 PO; +TRAM50TA PO
[2017-04-23 10:16] VITALS: BP 146/96; PULSE 108; RESP 16; TEMP 98.5; O2SAT 96
[2017-04-23] MEDS ORDERED: HYDR50TA94 PO (10:32)
[2017-04-23] MEDS ORDERED: GABA100C4 PO (10:35)
--- NOTE | 2017-04-23 10:36 | PD ---
HPI . Pruritic rash Chief Complaint: Skin Problem Time Seen by Provider: 10:26 Travel History International Travel<30 days: No Contact w/Intl Traveler<30days: No Traveled to known affect area: No History of Present Illness HPI Patient presents with the chief complaint of "cellulitis" her extremities. She states this been there for a month and a half. She states that it is very pruritic. It has been unrelieved by peroxide and Betadine. She has not seen her primary care provider for this. She reports no known modifying factors. She states that the itching is severe. She denies any fever. PFSH Past Medical History Arthritis: Yes (RA) Asthma: No Autoimmune Disease: Yes Anxiety: Yes Cancer: Yes (OVARIAN) Cardiovascular Problems: Yes (htn) Chest Pain: Yes (2 TREADMILL-1 ADENOSINE STRESS TEST) COPD: No Diminished Hearing: No Endocrine: Yes Genitourinary: Yes (MULTIPLE KIDNEY INFECTIONS) Hypertension: Yes Implanted Vascular Access Dvce: No Musculoskeletal: Yes (RHEUMATOID ARTHRITIS) Psychiatric: Yes Reproductive: Yes Respiratory: No Immunizations Current: Yes Thyroid Disease: Yes ?: Not : 3 Para: 2 : 1 Ectopic : Yes Ovarian Cysts: Yes Dilation and Curettage (D&C): Yes Tubal Ligation: Yes Past Surgical History Abdominal Surgery: Yes (CHOLECYSTECTOMY) Section: Yes (x2) Cholecystectomy: Yes (04) Gynecologic Surgery: Yes (CSECTIONS, D&C WITH NOVOSURE, 2 OVARIAN CYSTS REMOVED ) Hysterectomy: Yes Pacemaker: No Other Surgery: Yes (C-SECTIONS, GALLBLADDER, TUBAL LIGATION, D&C WITH NOVASURE , 2 CYSTS FROM OV) Social History Alcohol Use: No Tobacco Use: Yes (1 PACK PER WEEK) Substance Use: No Allergies-Medications (Allergen,Severity, Reaction): Coded Allergies: Sulfa (Sulfonamide Antibiotics) (Unverified Allergy, Severe, UNKNOWN, 04/14) penicillin G (Unverified Allergy, Severe, swelling, 04/14/17) acetaminophen (Unverified Allergy, Intermediate, Itching, 04/14/17) hydrocodone (Unverified Allergy, Intermediate, Itching, 04/14/17) tranexamic acid (Unverified Allergy, Intermediate, Itching, 04/14/17) Reported Meds & Prescriptions Reported Meds & Active Scripts Active Tramadol (Tramadol HCl) 50 Mg Tab 50 Mg PO Q6H PRN Prednisone 20 Mg Tab 20 Mg PO BID Ibuprofen 800 Mg Tab 800 Mg PO Q8H Levothyroxine (Levothyroxine Sodium) 200 Mcg Tab 200 Mcg PO DAILY Lisinopril-Hctz 20-25 Mg Tab 1 Tab PO DAILY Reported Furosemide 20 Mg Tab 20 Mg PO DAILY Review of Systems Except as stated in HPI: all other systems reviewed are Neg General / Constitutional: No: Fever, Chills Skin: Positive Rash, Positive Itching Physical Exam Narrative GENERAL: Awake and alert and in no acute distress. SKIN: Warm and dry. Scattered punctate macular lesions on her lower extremities. The skin is not red or hot. HEAD: Atraumatic. Normocephalic. EYES: Pupils equal and round. NECK: Trachea midline. CARDIOVASCULAR: Regular rate and rhythm. RESPIRATORY: No accessory muscle use. MUSCULOSKELETAL: No obvious deformities. No edema. NEUROLOGICAL: Awake and alert. No obvious cranial nerve deficits. Motor grossly within normal limits. Normal speech. PSYCHIATRIC: Appropriate mood and affect; insight and judgment normal. Data Data Last Documented VS Vital Signs Date Time Temp Pulse Resp B/P (MAP) Pulse Ox O2 Delivery O2 Flow Rate FiO2 04/23/17 10:16 98.5 108 16 146/96 (113) 96 MDM Medical Decision Making Medical Screen Exam Complete: Yes Emergency Medical Condition: Yes Differential Diagnosis The differential diagnosis of the skin rash includes but is not limited to allergic urticaria, scabies, insect bites, contact dermatitis Narrative Course This patient presents with a pruritic rash. She is concerned that his cellulitis. It does not have the typical appearance of cellulitis. She will be discharged home with a prescription for Vistaril to take for the itching. Diagnosis Primary Impression: Rash Patient Instructions: General Instructions, Acute Rash (ED) Departure Forms: Tests/Procedures Scripts Hydroxyzine HCl (Hydroxyzine HCl) 50 Mg Tab 50 MG PO QID Y for ITCHING, #30 TAB 0 Refills Prov: Nayeli Victoria MD 04/23/17 Disposition: 01 DISCHARGE HOME Condition: Stable Nayeli Victoria MD Apr 23, 2017 10:36
[2017-04-30] MEDS ORDERED: LEVO-171 PO (08:41)
[2017-04-30] MEDS ORDERED: GABA300C5 PO (08:47)
== END 2017-04-23 10:46 | disposition home or self-care (01) ==
LOC: PHED 10:14
DX: R21 Rash and other nonspecific skin eruption (principal); F17.210 Nicotine dependence, cigarettes, uncomplicated; I10 Essential (primary) hypertension; M06.9 Rheumatoid arthritis, unspecified; Z88.0 Allergy status to penicillin
CPT/HCPCS: 99283

== ENCOUNTER → 2017-04-29 | Outpatient (CLI) | payer OTHER ==
[~2017-04-29] MED LIST changes: +GABA100C4 PO; +GABA300C5 PO; +HYDR50TA94 PO; -IBUP800T23 PO; +LEVO-171 PO; -PRED20 PO; -TRAM50TA PO
== END ==
LOC: CLAB 08:57
PROVIDERS: ATTEND Nurse Practitioner Family
DX: E03.9 Hypothyroidism, unspecified (principal)
CPT/HCPCS: 36415; 84443

== ENCOUNTER 2017-05-19 10:28 | Emergency (ER) | payer OTHER ==
[~2017-05-19] VITALS: Ht 157.5 cm; Wt 141.5 kg
[~2017-05-19 10:28] MED LIST changes: -FURO20TA PO; -GABA100C4 PO; -LEVO200T4 PO
[2017-05-19 11:00] VITALS: BP 156/87; PULSE 86; RESP 18; TEMP 98.4; O2SAT 95
[2017-05-19] MEDS ORDERED: FURO20TA PO (11:10)
--- NOTE | 2017-05-19 11:50 | PD ---
HPI . Bilateral lower extremity discomfort Chief Complaint: Pain: Acute or Chronic Time Seen by Provider: 11:32 Travel History International Travel<30 days: No Contact w/Intl Traveler<30days: No Traveled to known affect area: No History of Present Illness HPI This patient presents with the chief complaint of at least a 2-1/2 month history of a pruritic, painful rash involving her lower extremities. It has now spread to the abdomen. She was seen here for it on 04/23 and was given a prescription for Atarax and told to follow with her primary care provider. She states that she has not seen her primary care provider because she "can't get there" and "does not have $75 to pay her." She subsequently presents back to us today for treatment. She states that she has used various different over-the -counter topical preparations on the rash without relief. She states that the previously prescribed Atarax did not help her itching. She reports no modifying factors. Specifically, she states that he does not exacerbate the rash. History Past Medical Histgory Hx Cancer: Yes (OVARIAN) Social History Alcohol Use: No Tobacco Use: Yes (1 PPD) Allergies-Medications (Allergen,Severity, Reaction): Coded Allergies: Sulfa (Sulfonamide Antibiotics) (Unverified Allergy, Severe, UNKNOWN, 05/19) penicillin G (Unverified Allergy, Severe, swelling, 05/19/17) acetaminophen (Unverified Allergy, Intermediate, Itching, 05/19/17) hydrocodone (Unverified Allergy, Intermediate, Itching, 05/19/17) tranexamic acid (Unverified Allergy, Intermediate, Itching, 05/19/17) Reported Meds & Prescriptions Reported Meds & Active Scripts Active Gabapentin 300 Mg Cap 300 Mg PO TID Levothyroxine (Levothyroxine Sodium) 300 Mcg Tab 300 Mcg PO DAILY Lisinopril-Hctz 20-25 Mg Tab 1 Tab PO DAILY Reported Furosemide 20 Mg Tab 20 Mg PO DAILY Review of Systems Except as stated in HPI: all other systems reviewed are Neg Skin: Positive Rash, Positive Itching Physical Exam Narrative GENERAL: This patient is awake and alert and in no acute distress. SKIN: Rash on the abdominal wall and bilateral lower extremities. It is worse around the ankles. There is excoriation. It does not like cellulitis. There is no purulent drainage from the excoriated lesions. HEAD: Normocephalic/atraumatic. EYES: Pupils are equal. Extraocular movements are intact. NECK: Full range of motion with no apparent pain. CARDIOVASCULAR: Regular rate. RESPIRATORY: Nonlabored respirations. MUSCULOSKELETAL: Atraumatic. NEUROLOGICAL: Nonfocal. PSYCHIATRIC: Appropriate mood and affect. Data Data Last Documented VS Vital Signs Date Time Temp Pulse Resp B/P (MAP) Pulse Ox O2 Delivery O2 Flow Rate FiO2 05/19/17 11:00 98.4 86 18 156/87 (110) 95 MDM Medical Screen Exam Complete: Yes Emergency Medical Condition: No Narrative Course A medical screening exam was performed: At the time of evaluation the presenting medical condition was determined not to be of an emergent nature. The patient was given the option of receiving additional care, but declined. Patient was given options for additional community resources from which to obtain care. The Patient Has Been advised to seek medical attention for their presenting complaint. The patient has been advised to return to the ER at any time if an emergent condition develops. Primary Impression: Encounter for medical screening examination Condition: Stable Nayeli Victoria MD May 19, 2017 11:50
== END 2017-05-19 11:55 | disposition left against medical advice (07) ==
LOC: PHED 10:28
DX: R21 Rash and other nonspecific skin eruption (principal)
CPT/HCPCS: 99281

== ENCOUNTER 2017-05-28 14:42 | Emergency (ER) | payer OTHER ==
[~2017-05-28] VITALS: Ht 157.5 cm; Wt 115.0 kg
[~2017-05-28 14:42] MED LIST changes: +FURO20TA PO; -HYDR50TA94 PO
[2017-05-28 14:43] VITALS: BP 168/99; PULSE 88; RESP 18; TEMP 99.3; O2SAT 97
[2017-05-28 16:29] LABS: BASOPHIL # 0.1 TH/MM3 (0-0.2); BASOPHIL % 0.6 % (0.0-2.0); EOSINOPHIL # 0.7 TH/MM3 (0-0.4); EOSINOPHIL % 6.4 % (0.0-4.0); HEMATOCRIT 38.7 % (35.0-46.0); HEMO FLAGS DIFF FINAL; LYMPH % 18.1 % (9.0-44.0); LYMPHOCYTE # 1.9 TH/MM3 (1.0-4.8); MEAN CELL VOLUME 87.8 FL (80.0-100.0); MEAN CORPUSCULAR HEMOGLOBIN 28.6 PG (27.0-34.0); MEAN CORPUSCULAR HGB CONC 32.5 % (32.0-36.0); MONO % 8.1 % (0.0-8.0); NEUT % 66.8 % (16.0-70.0); PLATELET COUNT 258 TH/MM3 (150-450); RED BLOOD COUNT 4.41 MIL/MM3 (4.00-5.30); WHITE BLOOD COUNT 10.5 TH/MM3 (4.0-11.0)
[2017-05-28 16:49] LABS: ALT (GPT) 58 U/L (10-53); ANION GAP 7 MEQ/L (5-15); AST (GOT) 33 U/L (15-37); BICARBONATE 28.7 MEQ/L (21.0-32.0); BLOOD UREA NITROGEN 11 MG/DL (7-18); CHLORIDE 100 MEQ/L (98-107); GLOMERULAR FILTRATION RATE 82 ML/MIN (>89); POTASSIUM 3.6 MEQ/L (3.5-5.1); SODIUM (NA) 136 MEQ/L (136-145)
[2017-05-28 16:51] LABS: ALKALINE PHOSPHATASE 113 U/L (45-117); TOTAL BILIRUBIN ADULT 0.2 MG/DL (0.2-1.0)
--- NOTE | 2017-05-29 10:20 | EKG ---
Date Performed: 05/28/2017 Time Performed: 14:52:24 PTAGE: 41 years EKG: Sinus rhythm MINIMAL VOLTAGE CRITERIA FOR LVH, CONSIDER NORMAL VARIANT SEPTAL MYOCARDIAL INFARCTION ABNORMAL ECG PREVIOUS TRACING : 11/09/2016 11.06 Compared to prior tracing no significant change DOCTOR: Jose Matamoros Interpretating Date/Time 05/29/2017 10:13:44
== END 2017-05-28 18:24 | disposition left against medical advice (07) ==
LOC: NED 14:42
DX: R42 Dizziness and giddiness (principal); R60.0 Localized edema; R94.31 Abnormal electrocardiogram [ECG] [EKG]; Z53.21 Procedure and treatment not carried out due to patient leaving prior to being seen by health care provider
CPT/HCPCS: 80053; 85025; 93005; 99281

== ENCOUNTER 2017-09-30 13:00 | Emergency (ER) | payer MEDICAID, OTHER ==
[~2017-09-30] VITALS: Ht 157.5 cm; Wt 146.0 kg
[2017-09-30 13:16] VITALS: BP 137/85; PULSE 92; RESP 16; TEMP 98.8; O2SAT 96
--- NOTE | 2017-09-30 14:54 | PD ---
HPI Chief Complaint: Musculoskeletal Complaint Time Seen by Provider: 14:48 Travel History International Travel<30 days: No Contact w/Intl Traveler<30days: No Traveled to known affect area: No History of Present Illness HPI 42-year-old female here with left knee pain. Symptoms started 2 weeks ago. Denies any injuries. She reports significant difficulty flexing or extending it. Pain is an aching pain which is constant and worse with walking and relieved with tramadol. She does report that she has had problems with hernia in the past but never to this extent. She reports that she has an appointment with an orthopedist in one month for evaluation of knee and back pain. She has no other complaints at this time. PFSH Past Medical History Arthritis: Yes (RA) Asthma: No Autoimmune Disease: Yes Anxiety: Yes Cancer: Yes (OVARIAN) Cardiovascular Problems: Yes (htn) Chest Pain: Yes COPD: No Diabetes: No Diminished Hearing: No Endocrine: Yes Genitourinary: Yes (MULTIPLE KIDNEY INFECTIONS) Hypertension: Yes Implanted Vascular Access Dvce: No Musculoskeletal: Yes (RHEUMATOID ARTHRITIS) Psychiatric: Yes Reproductive: Yes Respiratory: No Immunizations Current: Yes Thyroid Disease: Yes ?: Not : 3 Para: 2 : 1 Ectopic : Yes Ovarian Cysts: Yes Dilation and Curettage (D&C): Yes Tubal Ligation: Yes Past Surgical History Abdominal Surgery: Yes (CHOLECYSTECTOMY) Section: Yes (x2) Cholecystectomy: Yes (04) Gynecologic Surgery: Yes (D&C WITH NOVOSURE, 2 OVARIAN CYSTS REMOVED) Hysterectomy: Yes Pacemaker: No Other Surgery: Yes (C-SECTIONS, GALLBLADDER, TUBAL LIGATION, D&C WITH NOVASURE , 2 CYSTS FROM OV) Social History Alcohol Use: No Tobacco Use: Yes (1 PPD) Substance Use: No Allergies-Medications (Allergen,Severity, Reaction): Coded Allergies: Sulfa (Sulfonamide Antibiotics) (Unverified Allergy, Severe, UNKNOWN, 09/30) penicillin G (Unverified Allergy, Severe, swelling, 09/30/17) acetaminophen (Unverified Allergy, Intermediate, Itching, 09/30/17) hydrocodone (Unverified Allergy, Intermediate, Itching, 09/30/17) tranexamic acid (Unverified Allergy, Intermediate, Itching, 09/30/17) Reported Meds & Prescriptions Reported Meds & Active Scripts Active Naproxen 500 Mg Tab 500 Mg PO BID 10 Days Gabapentin 300 Mg Cap 300 Mg PO TID Lisinopril-Hctz 20-25 Mg Tab 1 Tab PO DAILY Reported Cyanocobalamin Inj (Cyanocobalamin) 1,000 Mcg/Ml Inj Unknown Dose IM WEEKLY Trazodone (Trazodone HCl) 100 Mg Tablet 100 Mg PO HS Calcium 600 (Calcium Carbonate) 600 Mg Calcium (1500 Mg) Tab 600 Mg PO DAILY Tramadol (Tramadol HCl) 50 Mg Tab 100 Mg PO BID PRN Levothyroxine (Levothyroxine Sodium) 100 Mcg Tab 100 Mcg PO DAILY Review of Systems General / Constitutional: No: Fever, Chills Musculoskeletal: Positive: Limited ROM, Pain Skin: Positive Other (denies open wounds) Physical Exam Narrative GENERAL: Morbidly obese female in no acute distress SKIN: Warm and dry. No erythema, no puncture wounds. CARDIOVASCULAR: Regular rate and rhythm. No murmur appreciated. RESPIRATORY: No accessory muscle use. Clear to auscultation. Breath sounds equal bilaterally. MUSCULOSKELETAL: Generalized tenderness to palpation of the left knee joint. There is significant pain with flexion and extension however range of motion is preserved. No obvious crepitus. NEUROLOGICAL: Awake and alert. No obvious cranial nerve deficits. Motor grossly within normal limits. Normal speech. Data Data Last Documented VS Vital Signs Date Time Temp Pulse Resp B/P (MAP) Pulse Ox O2 Delivery O2 Flow Rate FiO2 09/30/17 13:16 98.8 92 16 137/85 (102) 96 Orders Orders Knee, Ltd (1 Or 2vws) (09/30/17 ) Naproxen (Naprosyn) (09/30/17 15:45) Ed Discharge Order (09/30/17 15:54) [facility] Medical Decision Making Medical Screen Exam Complete: Yes Emergency Medical Condition: Yes Medical Record Reviewed: Yes Differential Diagnosis Osteoarthritis, tendinitis, strain Narrative Course X-ray imaging was obtained revealing tricompartmental osteoarthritis no acute findings. Her BMI is 58.9 and I think that her weight is contributing to her osteoarthritic changes at her young age. I did discuss this with her and recommended weight loss which is the interventional and most likely help the most with her pain. She does report that she is following up with an orthopedist to discuss her back and knee pain and 1 month. She will be discharged with a short course of Naprosyn. Diagnosis Primary Impression: Osteoarthritis of left knee Additional Instructions: Medication as needed. Follow-up with orthopedist as scheduled. Return for any emergent medical conditions. Med/Other Pt SpecificInfo: Prescription(s) given Scripts Naproxen (Naproxen) 500 Mg Tab 500 MG PO BID for 10 Days, #20 TAB 0 Refills Prov: Figueroa Power MD 09/30/17 Disposition: 01 DISCHARGE HOME Condition: Stable [address] Sep 30, 2017 14:54
[2017-09-30] MEDS ORDERED: CALCTAB94 PO (14:57)
[2017-09-30] MEDS ORDERED: CYAN1000P IM (14:57)
[2017-09-30] MEDS ORDERED: TRAZ100T10 PO (14:57)
[2017-09-30] MEDS ORDERED: LEVO100T5 PO (14:57)
[2017-09-30] MEDS ORDERED: TRAM50TA PO (14:57)
--- NOTE | 2017-09-30 15:43 | RADRPT ---
EXAM DATE/TIME: 09/30/2017 14:56 [facility] COMPARISON: KNEE LEFT LTD (1 OR 2VWS), March 12, 2017, 13:24. INDICATIONS : Left knee pain with no known injury MEDICAL HISTORY : Arthritis SURGICAL HISTORY : None. ENCOUNTER: Initial ACUITY: 1 week PAIN SCORE: 10/10 LOCATION: Left entire knee FINDINGS: Multiple views of the left knee were obtained and demonstrate mild osteopenia and normal alignment. T ricompartment degenerative changes are present with mild joint space loss, sclerosis and spurring. Th ere is no definite joint body or effusion. CONCLUSION: 3 compartment osteoarthritic change. Miguelangel Mireles MD on September 30, 2017 at 15:40 Board Certified Radiologist. This report was verified electronically.
[2017-09-30] MEDS ORDERED: NAPROXEN 500 MG TAB PO ONE (15:45)
[2017-09-30] MEDS ORDERED: NAPR500T2 PO (15:54)
== END 2017-09-30 16:41 | disposition home or self-care (01) ==
LOC: PHEFT 13:00
DX: M17.12 Unilateral primary osteoarthritis, left knee (principal); F17.200 Nicotine dependence, unspecified, uncomplicated; E07.9 Disorder of thyroid, unspecified; I10 Essential (primary) hypertension
CPT/HCPCS: 73560; 99283